=== PATIENT | female | born 1945 | race Caucasian/White ===

== ENCOUNTER → 2023-04-25 | Outpatient (CLI) | payer MEDICARE, BC ==
--- NOTE | 2023-04-25 11:06 | US ---
EXAMINATION TYPE: US carotid duplex BILAT DATE OF EXAM: 04/25/2023 COMPARISON: NONE CLINICAL INDICATION: Female, 77 years old with history of A; Stenosis TECHNIQUE: Carotid duplex ultrasound examination. Indirect Doppler criteria was utilized. 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 Criteria for Assigning % of Stenosis / Diameter reduction (Estimation based on the indirect measurements of the internal carotid artery velocities (ICA PSV). 1. Normal (no stenosis)=ICA PSV < 125 cm/s: ratio < 2.0: ICA EDV<40 cm/s. 2. Less than 50% stenosis=ICA PSV < 125 cm/s: ratio < 2.0: ICA EDV<40 cm/s. 3. 50 to 69% stenosis=ICA PSV of 125 to 230 cm/s: ration 2.0 ? 4.0: ICA EDV 40-100 cm/s. 4. Greater than 70% stenosis to near occlusion= ICA PSV > 230 cm/s: ratio > 4.0: ICA EDV > 100 cm/s. 5. Near occlusion= ICA PSV velocities may be low or undetectable: variable ratio and ICA EDV. 6. Total occlusion=unable to detect flow.
== END | disposition home or self-care (01) ==
LOC: RADUSWWP 09:53
PROVIDERS: ATTEND Family Medicine
DX: R00.2 Palpitations (principal); I35.0 Nonrheumatic aortic (valve) stenosis
CPT/HCPCS: 93880